=== PATIENT | female | born 1980 | race African-American/Black ===

== ENCOUNTER 2020-07-23 07:07 | Outpatient (CLI) | payer OTHER | END 2020-07-23 07:08 | disposition home or self-care (01) | LOC: BICULT 07:07 | PROVIDERS: ATTEND Family Medicine | DX: R19.04 Left lower quadrant abdominal swelling, mass and lump (principal); R19.00 Intra-abdominal and pelvic swelling, mass and lump, unspecified site | CPT/HCPCS: 76856; 93975; 93976 ==

== ENCOUNTER 2022-04-02 09:49 | Outpatient (CLI) | payer BC | END 2022-04-02 09:50 | disposition home or self-care (01) | LOC: BICRAD 09:49 | PROVIDERS: ATTEND Registered Nurse | DX: R06.02 Shortness of breath (principal); R05.8 Other specified cough | CPT/HCPCS: 71046 ==